=== PATIENT | male | born 1985 | race Caucasian/White ===

== ENCOUNTER 2023-04-08 06:14 | Emergency (ER) | payer BC, SELFPAY ==
[2023-04-08 06:15] VITALS: BMI 26.4
[2023-04-08 06:17] VITALS: BP 154/77
--- NOTE | 2023-04-08 06:42 | ED.GENMED ---
History of Present Illness
General
Chief Complaint: Flank Pain
Source: patient
Exam Limitations: none
Time Seen by Provider: 04/08/23 06:36
Nursing documentation reviewed up to this point in time: agreed with
Travel History
Have you had any contact with someone who has COVID-19?: No
Do you have any symptoms of coronavirus? Fever > 100 degrees, chills, cough, shortness of breath, sore throat, loss of taste or smell, muscle aches, or headache?: No
History of Present Illness
History of Present Illness:
38-year-old male presents emergency department complaining of left flank pain. He was having difficulty urinating when he woke up at 3 AM. He had similar pain 2 weeks ago it went away.
Past History
Past History
ED Past Medical History: None and Other (denies injuring neck or back in the past.)
ED Past Surgical History: Orthopedic (Torn pectoralis)
Social History
Tobacco: Non-smoker
Living: with family
Review of Systems
Review of Systems
Allergies reviewed?: Yes
All Other Systems: Not applicable
Constitutional: Reports no symptoms
EENT: Reports no symptoms
Respiratory: Reports no symptoms
Cardiac: Reports no symptoms
ABD/GI: Reports nausea
: Reports flank pain
Musculoskeletal: Reports no symptoms
Skin: Reports no symptoms
Neurological: Reports no symptoms
Endocrine: Reports no symptoms
Hematologic/Lymphatic: Reports no symptoms
Psychiatric: Reports no symptoms
Phy Exam
Physical Exam
Physical Exam:
Physical Exam
General: Appears uncomfortable, afebrile
Neck: supple. no meningeal signs. normal posterior pharynx
Heart: s1/s2 regular rate and rhythm, no murmur. equal radial
pulses.
HEENT: Pupils equal round reactive to light, EOMI
Lungs: no acute respiratory distress. clear bilaterally
Abdomen: normal bowel sounds. not tender. no CVAT
Neuro: alert and oriented. no focal neurological deficits cranial nerves II through XII intact
Skin: no rash
Psychiatric: well kept. interactive and cooperative
Extremities: no edema. no calf tenderness. negative homans. good distal pulses
Course
Orders/Labs/Results
Orders:
Orders
04/08/23 06:37
CT Abd/pel Without Iv Or Oral Urgent
Comment:
Reason For Exam: left flank pain
IV Insert/Care/Rem.- Treatment PRN
0.9% Sodium Chloride 1000 ml [Nss] 1,000 ml IV BOLUS
Ketorolac [Toradol] 15 mg IV NOW STA
Ondansetron Injectable [Zofran] 4 mg IV NOW STA
Pulse Ox/cont/shift [RESP] Stat
Quantity: 1
04/08/23 06:45
Complete Blood Count/No Diff Urgent
Comprehensive Metabolic Panel Urgent
Lipase Urgent
04/08/23 07:33
Ketorolac [Toradol] 15 mg IV NOW STA
04/08/23 07:37
Urinalysis Reflex To Culture Urgent
Date Specimen was Collected: 04/08/23
Time Specimen was Collected: 07:33
Urine Microscopic Reflex Cult Urgent
Abnormal Lab Results
04/08/23 04/08/23
06:45 07:37
Potassium 3.4 L mmol/L
(3.5-5.1)
BUN 24 H mg/dl
(9-20)
Glucose 120 H mg/dl
(70-99)
Urine Ketones Trace A
(Negative)
Ur Occult Blood Reflex 4+ A
(Negative)
Urine RBC 50-60 A /HPF
(0-2)
Urine Bacteria (Reflex) Few A
(Negative)
04/08/23 06:45
04/08/23 06:45
Vital Signs
Initial and Last Documented VS:
Initial Vital Signs
Temp Pulse Resp BP Pulse Ox
97.3 F 106 26 154/77 99
04/08/23 06:17 04/08/23 06:17 04/08/23 06:17 04/08/23 06:17 04/08/23 06:17
Last Documented Vital Signs
Temp Pulse Resp BP Pulse Ox
97.3 F 67 16 133/78 98
04/08/23 06:17 04/08/23 07:44 04/08/23 07:44 04/08/23 07:44 04/08/23 07:44
MDM/Problems Addressed
Differential Diagnosis Includes:
UTI, kidney stone
MDM/Problems Addressed:
38 yo male with left UVJ stone. Pain improved, no UTI, stable for d/c.
*Radiology
Radiology exam reviewed: radiology read reviewed (ct a/p shows left uvj stone)
*Pulse Oximetry
Patient hypoxic: no
*EKG
Interpreted by ED Provider?: NA
*Retrimmer Interpretation
Rate: Retrimmer- N/A
*Critical Care Note
Total Time (30-74mins, 75-104mins- exclusive of procedures): Not Applicable
Patient Management
Social determinants of health affecting care: Living situation and Strong social support
Escalation/DeEscalation of care consider admission/obs:
admit not indicated
ED Attending Note
-
Portions of this chart may have been created with voice recognition software.� Occasional wrong word or��sound alike� substitutions may have occurred due to the inherent limitations of voice recognition software.
Discharge Plan
Departure
Patient Disposition: Home (Routine Discharge)
Date of Disposition: 04/08/23
Time of Disposition: 08:13
Patient with high blood pressure during this ER visit?: Yes
Condition: Good
Discharge Problem:
Left ureteral calculus
Instructions: Kidney Stones (DC), How to Strain Your Urine, BLOOD PRESSURE
Prescriptions:
No Action
valacyclovir [Valtrex] 1 gram tablet
1,000 mg PO TID Qty: 30 0RF
Referrals:
Murali Flores MD [Active] - Call in 1-3 days for appt
Maxi Croft MD [Family Provider] -
Interventions
Interventions:
*Risk Screen - Suicide Last Done: 04/08/23 07:15
*General Assessment Last Done: 04/08/23 07:15
*Neglect/Abuse Screening Last Done: 04/08/23 07:15
ED- Fall Risk Assessment Last Done: 04/08/23 07:15
*ED COVID-19 Vaccine History Last Done: 04/08/23 07:15
*Nursing Disposition Last Done: 04/08/23 08:33
ED-Male Genitourinary Assessment Last Done: 04/08/23 07:15
Discharge Date and Time
Discharge Date/Time: 04/08/23 08:33
[2023-04-08] MEDS: ZOFRAN 4 MG IV (06:46)
[2023-04-08] MEDS: NSS 1000 IV (06:46)
[2023-04-08] MEDS: TORADOL 15 MG IV ×2 (06:47→07:39)
[2023-04-08 06:54] LABS: Hematocrit 42.1 % (39.0-52.0); Hemoglobin 14.9 g/dL (13.0-18.0); Mean Corp Hgb Conc. 35.4 g/dL (33.0-37.0); Mean Corpuscular Hgb 30.5 pg (27.0-31.0); Mean Corpuscular Volume 86.3 fL (80.0-94.0); Mean Platelet Volume 9.9 fL (7.4-10.4); Platelet Count 258 10^3/uL (130-400); Red Blood Cell Count 4.88 10^6/uL (4.70-6.10); Red Cell Dist. Width 12.4 % (11.5-14.5); White Blood Cell Count 6.8 10^3/uL (4.8-10.8)
[2023-04-08 07:12] LABS: ALT (SGPT) 26 U/L (0-50); AST (SGOT) 30 U/L (17-59); Albumin 4.8 g/dl (3.5-5.0); Alkaline Phosphatase 62 U/L (38-126); Blood Urea Nitrogen 24 mg/dl (9-20); Calcium 9.7 mg/dl (8.4-10.2); Carbon Dioxide 22 mmol/L (22-30); Chloride 106 mmol/L (98-107); Estimated Creatinine Clearance 77 ml/min; Glucose 120 mg/dl (70-99); Lipase 186 U/L (23-300); Potassium 3.4 mmol/L (3.5-5.1); Sodium 138 mmol/L (135-145); Total Bilirubin 0.6 mg/dl (0.2-1.3); Total Protein 7.9 g/dl (6.3-8.2); eGFR > 60.00
[2023-04-08 07:44] VITALS: BP 133/78
[2023-04-08 07:55] LABS: Urine Albumin Negative (Neg - Trace); Urine Bilirubin Negative (Negative); Urine Character Clear (Clear); Urine Color Yellow; Urine Glucose Negative (Negative); Urine Ketone Trace (Negative); Urine Leukocyte Negative (Negative); Urine Nitrite Negative (Negative); Urine Occult Blood 4+ (Negative); Urine Specific Gravity 1.015 (<1.030); Urine Urobilinogen Negative (Neg - 1+)
[2023-04-08 08:07] LABS: Urine Squamous Cell 0-2 /LPF (Few)
[2023-04-08 08:08] LABS: Urine Bacteria Few (Negative); Urine Red Blood Cell 50-60 /HPF (0-2); Urine White Cell 0-2 /HPF (0-5)
== END 2023-04-08 08:33 | disposition home or self-care (01) ==
LOC: EMR 06:14
PROVIDERS: EMERGENCY PHYSICIAN Emergency Medicine; FAMILY PHYSICIAN Family Medicine
DX: N13.2 Hydronephrosis with renal and ureteral calculous obstruction (principal); R03.0 Elevated blood-pressure reading, without diagnosis of hypertension
CPT/HCPCS: 99284; 96374; 96375; 96376; 74176; 80053; 81003; 81015; 83690; 85027

== ENCOUNTER 2024-06-15 11:10 | Emergency (ER) | payer BC, SELFPAY ==
[2024-06-15 11:13] VITALS: BP 127/76
--- NOTE | 2024-06-15 12:38 | ED.GENMED ---
History of Present Illness
General
Chief Complaint: Skin Surface Trauma
Source: patient
Exam Limitations: none
Time Seen by Provider: 06/15/24 12:08
Nursing documentation reviewed up to this point in time: agreed with
History of Present Illness
History of Present Illness:
Patient is a 39-year male who presents to the ER for laceration to right thumb while cutting a watermelon. Patient is left-hand dominant. He is unsure of his last tetanus. He denies any other injuries.
Past History
Past History
ED Past Medical History: None and Other (denies injuring neck or back in the past.)
ED Past Surgical History: Orthopedic (Torn pectoralis)
Social History
Tobacco: Non-smoker
Living: with family
Review of Systems
Review of Systems
Allergies reviewed?: Yes
All Other Systems: ROS reviewed and negative except as documented in HPI and ROS
Constitutional: Reports no symptoms
Skin: Reports other (laceration to right thumb )
Neurological: Reports no symptoms
Psychiatric: Reports no symptoms
Phy Exam
General Physical Exam
General Presentation: no apparent distress
General age: appears stated age
General Skin: warm and dry
General Habitus: normal
General Mental: alert
General Hydration: appears well hydrated
Neurological Exam
Neurological Exam: alert
Musculoskeletal Exam
Musculoskeletal Exam: full ROM and other (Right upper extremity with strong pulses 2 cm superficial /partial thickness flap laceration to distal phalanx no bony tenderness full flexion extension no swelling)
Skin Exam
Skin Exam: normal color and warm/dry
Psychiatric Exam
Psychiatric Exam: normal mood/affect
Course
Orders/Labs/Results
Orders:
Orders
06/15/24 12:38
Tetanus/Diphth/Acelpertussis [Adacel] 0.5 ml IM .ONCE ONE
Vital Signs
Initial and Last Documented VS:
Initial Vital Signs
Temp Pulse Resp BP Pulse Ox
98.5 F 60 16 127/76 94
06/15/24 11:13 06/15/24 11:13 06/15/24 11:13 06/15/24 11:13 06/15/24 11:13
Last Documented Vital Signs
Temp Pulse Resp BP Pulse Ox
98.5 F 60 16 127/76 94
06/15/24 11:13 06/15/24 11:13 06/15/24 11:13 06/15/24 11:13 06/15/24 11:13
MDM/Problems Addressed
Differential Diagnosis Includes:
Not limited to laceration
MDM/Problems Addressed:
Patient with superficial/partial-thickness small flap laceration to distal phalanx of the right thumb this was cleaned with copious sumaya normal saline and repaired with Steri-Strip. Tetanus updated. Wound care reviewed. No bony tenderness
normal neurovascular exam
*Critical Care Note
Total Time (30-74mins, 75-104mins- exclusive of procedures): Not Applicable
ED Attending Note
-
Portions of this chart may have been created with voice recognition software.� Occasional wrong word or��sound alike� substitutions may have occurred due to the inherent limitations of voice recognition software.
Discharge Plan
Departure
Patient Disposition: Home (Routine Discharge)
Date of Disposition: 06/15/24
Time of Disposition: 12:54
Patient with high blood pressure during this ER visit?: No
Condition: Fair
Covid-19: Not Applicable
Discharge Problem:
Finger laceration
Instructions: Wound Care (DC)
Prescriptions:
No Action
valacyclovir [Valtrex] 1 gram tablet
1,000 mg PO TID Qty: 30 0RF
Referrals:
Maxi Croft MD [Family Provider] -
Activity Restrictions/Additional Instructions:
Keep wound clean and dry for 24 hrs. after 24 hrs you may remove outer dressing. you may lightly wash with soap and water pat dry . Trim steri strips as discussed. They will fall off on their own. See family doctor as needed in the next several
days for wound check
return if any signs of infection; if increased pain swelling redness drainage fever chills red streaking
Interventions
Interventions:
*Risk Screen - Suicide Last Done: 06/15/24 12:17
*General Assessment Last Done: 06/15/24 12:17
*Neglect/Abuse Screening Last Done: 06/15/24 12:17
*ED- Fall Risk Assessment Last Done: 06/15/24 12:17
*Nursing Disposition Last Done: 06/15/24 12:53
ED-Skin Assessment Last Done: 06/15/24 12:17
Discharge Date and Time
Discharge Date/Time: 06/15/24 13:02
Print Language: [id number]
[2024-06-15] MEDS: ADACEL 0.5 ML IM (12:44)
== END 2024-06-15 13:02 | disposition home or self-care (01) ==
LOC: EMR 11:10
PROVIDERS: EMERGENCY PHYSICIAN Emergency Medicine; FAMILY PHYSICIAN Family Medicine
DX: S61.011A Laceration without foreign body of right thumb without damage to nail, initial encounter (principal); W27.8XXA Contact with other nonpowered hand tool, initial encounter; Z23 Encounter for immunization
CPT/HCPCS: 90471; 99282; 90715